=== PATIENT | male | born 1990 | race American Indian/Alaskan Native ===

== ENCOUNTER 2018-08-19 02:06 | Emergency (ER) | payer SELFPAY ==
[2018-08-19 02:54] LABS: Bilirubin,Urine NEG (Negative); Blood,Urine NEG (Negative); Color,Urine Yellow (Yellow); Mucus,Urine 3+ /HPF; Urobilinogen,Urine < 2.0 mg/dL (<2.0)
[2018-08-19 02:58] LABS: Benzodiazepines Screen,Urine PRESUMPTIVE NEGATIVE; Cocaine Screen,Urine PRESUMPTIVE NEGATIVE; Methadone Screen,Urine PRESUMPTIVE NEGATIVE; Opiate Screen,Urine PRESUMPTIVE NEGATIVE
[2018-08-19 03:24] LABS: Basophils # (Auto) 0.1 K/mm3 (0.0-0.1); Basophils % (Auto) 0.8 % (0.0-1.8); Eosinophils # (Auto) 0.6 K/mm3 (0.0-0.4); Eosinophils % (Auto) 9.5 % (0.0-4.3); Hematocrit 42.4 % (35.5-45.6); Hemoglobin 13.9 gm/dl (11.8-15.2); Lymphocytes # (Auto) 2.9 K/mm3 (1.2-5.4); Lymphocytes % (Auto) 45.5 % (13.4-35.0); Mean Corpuscular HGB Conc 33 % (32-34); Mean Corpuscular Volume 89 fl (84-94); Monocytes # (Auto) 0.5 K/mm3 (0.0-0.8); Monocytes % (Auto) 8.3 % (0.0-7.3); Platelet Count 223 K/mm3 (140-440); Red Blood Count 4.76 M/mm3 (3.65-5.03); Red Cell Distribution Width 14.5 % (13.2-15.2)
[2018-08-19 03:33] LABS: Amphetamine Screen,Urine PRESUMPTIVE POSITIVE; Cannabinoid Screen,Urine PRESUMPTIVE POSITIVE
[2018-08-19 03:34] LABS: BUN/Creatinine Ratio 12; Blood Urea Nitrogen 11 mg/dL (9-20); Calcium 9.5 mg/dL (8.4-10.2); Hemolysis Index 26
--- NOTE | 2018-08-19 06:50 | Emergency Department Report ---
ED General Adult HPI - General Chief complaint: Neuro Symptoms/Deficit Stated complaint: CHILLS Time Seen by Provider: 08/19/18 06:09 Source: patient, old records reviewed Mode of arrival: Ambulatory Limitations: No Limitations - History of Present Illness Initial comments: 28-year-old male with a past medical history of HIV presents to the hospital wit h a hard to described neurologic complaint. Patient has been noncompliant with HIV meds 2 months but states that although his viral load was detectable earlier this year his CD4 count was greater than 200. Patient describes episodes as occurring blackout last for about 1 second. His partner describes it as a panic attack. He does not lose consciousness during these episodes. He has intermittent episodic spasm of his hands and feet. No reports of seizure activity, postictal state, or alteration in mental status. Patient denies infectious symptoms including fever, cough, abdominal pain, shortness of breath, dysuria, nausea, or vomiting. He complains of hot flashes and feeling of shive ring and chills. He did have an episode of loose stools yesterday. Patient admits to smoking wax 2 nights ago which is supposed to be concentrated THC in a wax form. Denies other substance abuse. His doctors affiliated with [facility] Severity scale (0 -10): 0 - Related Data Previous Rx's Medication Instructions Recorded Last Taken Type Docusate Sodium [Colace] 100 mg PO BID PRN #15 capsule 07/12/13 Unknown Rx Allergies Allergy/AdvReac Type Severity Reaction Status Date / Time No Known Allergies Allergy Unverified 07/11/13 20:38 ED Review of Systems ROS: Stated complaint: CHILLS Other details as noted in HPI Comment: All other systems reviewed and negative ED Past Medical Hx - Past Medical History Previous Medical History?: No Hx HIV: Yes - Surgical History Past Surgical History?: No - Social History Smoking Status: Current Every Day Smoker Substance Use Type: Alcohol, Marijuana - Medications Home Medications: Home Medications Medication Instructions Recorded Confirmed Last Taken Type Docusate Sodium [Colace] 100 mg PO BID PRN #15 capsule 07/12/13 Unknown Rx ED Physical Exam - General Limitations: No Limitations - Other Other exam information: General: No limitations, patient is alert in no acute distress Head exam: Atraumatic, normocephalic Eyes exam: Normal appearance, pupils equal reactive to light, extraocular movements intact ENT: Moist mucous membrane, normal oropharynx without thrush Neck exam: Normal inspection, full range of motion, no meningismus nontender Respiratory exam: Clear to auscultation bilateral, no wheezes, rales, crackles Cardiovascular: Normal rate and rhythm, normal heart sounds Abdomen: Soft, nondistended, and nontender, with normal bowel sounds, no rebound, or guarding Extremity: Full range of motion normal inspection no deformity Back: Normal Inspection, full range of motion, no tenderness Neurologic: Alert, oriented x3, cranial nerves intact, no motor or sensory deficit, [id number] function intact, Psychiatric: normal affect, normal mood Skin: Warm, dry, intact ED Course Vital Signs 08/19/18 08/19/18 02:10 04:11 Temperature 97.8 F 98.1 F Pulse Rate 111 H 71 Respiratory 18 14 Rate Blood Pressure 191/110 Blood Pressure 146/91 [Left] O2 Sat by Pulse 96 98 Oximetry ED Medical Decision Making - Lab Data Result diagrams: 08/19/18 02:35 08/19/18 02:35 Lab Results 08/19/18 08/19/18 08/19/18 Range/Units 02:31 02:31 02:35 WBC 6.5 (4.5-11.0) K/mm3 RBC 4.76 (3.65-5.03) M/mm3 Hgb 13.9 (11.8-15.2) gm/dl Hct 42.4 (35.5-45.6) % MCV 89 (84-94) fl MCH 29 (28-32) pg MCHC 33 (32-34) % RDW 14.5 (13.2-15.2) % Plt Count 223 (140-440) K/mm3 Lymph % (Auto) 45.5 H (13.4-35.0) % [place] % (Auto) 8.3 H (0.0-7.3) % Eos % (Auto) 9.5 H (0.0-4.3) % Baso % (Auto) 0.8 (0.0-1.8) % Lymph # 2.9 (1.2-5.4) K/mm3 [place] # 0.5 (0.0-0.8) K/mm3 Eos # 0.6 H (0.0-0.4) K/mm3 Baso # 0.1 (0.0-0.1) K/mm3 Seg Neutrophils % 35.9 L (40.0-70.0) % Seg Neutrophils # 2.3 (1.8-7.7) K/mm3 Sodium (137-145) mmol/L Potassium (3.6-5.0) mmol/L Chloride (98-107) mmol/L Carbon Dioxide (22-30) mmol/L Anion Gap mmol/L BUN (9-20) mg/dL Creatinine (0.8-1.5) mg/dL Estimated GFR ml/min BUN/Creatinine Ratio % Glucose (75-100) mg/dL Calcium (8.4-10.2) mg/dL Total Creatine Kinase (55-170) units/L Urine Color Yellow (Yellow) Urine Turbidity Clear (Clear) Urine pH 5.0 (5.0-7.0) Ur Specific [place] 1.030 (1.003-1.030) Urine Protein 30 mg/dl (Negative) mg/dL Urine Glucose (UA) Neg (Negative) mg/dL Urine Ketones Neg (Negative) mg/dL Urine Blood Neg (Negative) Urine Nitrite Neg (Negative) Urine Bilirubin Neg (Negative) Urine Urobilinogen < 2.0 (<2.0) mg/dL Ur Leukocyte Esterase Neg (Negative) Urine WBC (Auto) 1.0 (0.0-6.0) /HPF Urine RBC (Auto) 5.0 (0.0-6.0) /HPF Urine Mucus 3+ /HPF Urine Opiates Screen Presumptive negative Urine Methadone Screen Presumptive negative Ur Barbiturates Screen Presumptive negative Ur Phencyclidine Scrn Presumptive negative Ur Amphetamines Screen Presumptive positive U Benzodiazepines Scrn Presumptive negative Urine Cocaine Screen Presumptive negative U Marijuana (THC) Screen Presumptive positive Drugs of Abuse Note Disclamer 08/19/18 08/19/18 Range/Units 02:35 02:35 WBC (4.5-11.0) K/mm3 RBC (3.65-5.03) M/mm3 Hgb (11.8-15.2) gm/dl Hct (35.5-45.6) % MCV (84-94) fl MCH (28-32) pg MCHC (32-34) % RDW (13.2-15.2) % Plt Count (140-440) K/mm3 Lymph % (Auto) (13.4-35.0) % [place] % (Auto) (0.0-7.3) % Eos % (Auto) (0.0-4.3) % Baso % (Auto) (0.0-1.8) % Lymph # (1.2-5.4) K/mm3 [place] # (0.0-0.8) K/mm3 Eos # (0.0-0.4) K/mm3 Baso # (0.0-0.1) K/mm3 Seg Neutrophils % (40.0-70.0) % Seg Neutrophils # (1.8-7.7) K/mm3 Sodium 141 (137-145) mmol/L Potassium 3.9 (3.6-5.0) mmol/L Chloride 104.6 (98-107) mmol/L Carbon Dioxide 27 (22-30) mmol/L Anion Gap 13 mmol/L BUN 11 (9-20) mg/dL Creatinine 0.9 (0.8-1.5) mg/dL Estimated GFR > 60 ml/min BUN/Creatinine Ratio 12 % Glucose 89 (75-100) mg/dL Calcium 9.5 (8.4-10.2) mg/dL Total Creatine Kinase 217 H (55-170) units/L Urine Color (Yellow) Urine Turbidity (Clear) Urine pH (5.0-7.0) Ur Specific [place] (1.003-1.030) Urine Protein (Negative) mg/dL Urine Glucose (UA) (Negative) mg/dL Urine Ketones (Negative) mg/dL Urine Blood (Negative) Urine Nitrite (Negative) Urine Bilirubin (Negative) Urine Urobilinogen (<2.0) mg/dL Ur Leukocyte Esterase (Negative) Urine WBC (Auto) (0.0-6.0) /HPF Urine RBC (Auto) (0.0-6.0) /HPF Urine Mucus /HPF Urine Opiates Screen Urine Methadone Screen Ur Barbiturates Screen Ur Phencyclidine Scrn Ur Amphetamines Screen U Benzodiazepines Scrn Urine Cocaine Screen U Marijuana (THC) Screen Drugs of Abuse Note - Medical Decision Making Patient denies methamphetamine abuse. His UDS is positive for marijuana and amphetamines. It is possible that his drugs were laced with amphetamines and could be contributing to his difficult to describe neurologic complaints. Patient has a nonfocal neuro exam and unremarkable labs in the ED. Patient will be encouraged to abstain from drug use in to follow up with a PCP for reassessment of his symptoms. He is welcome to return if symptoms worsen. Patient initially presented with significant tachycardia and hypertension which has spontaneously improved without ED intervention. - Differential Diagnosis seizures, tremors, eventually abnormalities, drug abuse Critical Care Time: No Critical care attestation.: If time is entered above; I have spent that time in minutes in the direct care of this critically ill patient, excluding procedure time. ED Disposition Clinical Impression: Marijuana use, Amphetamine poisoning Disposition: DC-01 TO HOME OR SELFCARE Is pt being admited?: No Does the pt Need Aspirin: No Condition: Stable Instructions: Methamphetamine Abuse (ED), Cannabis Abuse (ED) Additional Instructions: Abstain from drug use. Follow up with your doctor or the clinic/doctor provided. Return if symptoms worsen as indicated by your discharge instructions Referrals: JULIA THOMAS [Primary Care Provider] - 3-5 Days your, doctor [Other] - 3-5 Days Time of Disposition: 06:54
[2018-08-19 08:00] VITALS: BP 154/99
== END 2018-08-19 08:00 | disposition home or self-care (01) ==
LOC: ED 02:06
DX: T43.621A Poisoning by amphetamines, accidental (unintentional), initial encounter (principal); F12.10 Cannabis abuse, uncomplicated; F17.200 Nicotine dependence, unspecified, uncomplicated; Y92.89 Other specified places as the place of occurrence of the external cause
CPT/HCPCS: 36415; 80048; 80307; 81001; 82550; 85025